=== PATIENT | female | born 1950 ===

== ENCOUNTER 2022-04-22 14:07 | Inpatient (IN) ==
[2022-04-22] MEDS ORDERED: ASPIRIN 325 MG TABLET PO STA (16:12)
[2022-04-22] MEDS ORDERED: SODIUM CHLORIDE 0.9% 500 ML IV STA (16:12)
[2022-04-22 16:17] LABS: Basophils % 0.1 % (0.0-0.8); Eosinophils # 0.2 10*3/uL (0.0-0.87); Eosinophils % 1.4 % (0.00-10.9); Hematocrit 40.7 VOL% (35.7-47.0); Hemoglobin 13.1 GM/DL (12.0-16.0); Immature Granulocytes % 0.3 %; Immature Granulocytes Absolute 0.04 #; Lymphocytes # 1.3 10*3/uL (1.4-4.0); Lymphocytes % 11.3 % (21.3-54.2); Mean Corpuscular HGB Conc 32.2 GM/DL (32-36); Mean Corpuscular Volume 97.1 FL (87-102); Mean Platelet Volume 10.5 FL (9.6-12.0); Monocytes # 1.1 10*3/uL (0.11-0.8); Monocytes % 9.2 % (1.7-12.7); Neutrophils % 77.7 % (38.7-73.9); Platelet Count 290 T/CUMM (130-400); Red Blood Count 4.19 MC/CUMM (3.8-5.5); Red Cell Distribution Width 13.8 % (9.3-17.3); White Blood Count 11.6 T/CUMM (4-12)
[2022-04-22 16:26] LABS: Calcium 9.6 MG/DL (8.5-10.1); Osmolality,Calculated 290.4 MOS/KG (273-304); Potassium 5.1 MMOL/L (3.5-5.1)
[2022-04-22] MEDS ORDERED: SODIUM CHLORIDE 0.9% 1,000 ML IV STA (18:04)
[2022-04-22] MEDS ORDERED: AZITHROMYCIN INJ 500 MG in SODIUM CHLORIDE 0.9% 250 ML IV STA (18:04)
[2022-04-22] MEDS ORDERED: cefTRIAXone 1,000 MG in SODIUM CHLORIDE 0.9% 100 ML IV ONE (18:04)
[2022-04-22] MEDS ORDERED: NITROGLYCERIN SL 0.4 MG TABLET SL STA (18:37)
[2022-04-22] MEDS ORDERED: FUROSEMIDE 40 MG/4 ML VIAL IV STA (18:40)
[2022-04-22] MEDS ORDERED: NITROGLYCERIN DRIP 50 MG/250 ML BOTTLE IV SCH (19:00)
[2022-04-22] MEDS ORDERED: hydroCHLOROthiazide 25 MG TABLET PO STA (20:19)
[2022-04-22] MEDS ORDERED: LABETALOL 20 MG/4 ML SYRINGE IV STA (20:34)
[2022-04-22] MEDS ORDERED: ASPIRIN CHEW 81 MG TABLET PO STA (20:35)
[2022-04-22] MEDS ORDERED: ENOXAPARIN 120 MG/0.8 ML SYRINGE SUBCUT STA (20:36)
[2022-04-22] MEDS ORDERED: ONDANSETRON 4 MG/2 ML VIAL IV PRN (21:15)
[2022-04-22] MEDS ORDERED: hydrALAZINE 20 MG/1 ML VIAL IV PRN (21:15)
[2022-04-22] MEDS ORDERED: ACETAMINOPHEN 325 MG TABLET PO PRN (21:15)
[2022-04-22] MEDS ORDERED: ALUMINUM/MAGNES/SIMETH MAX STR 30 ML UDCUP PO PRN (21:15)
[2022-04-22] MEDS ORDERED: DEXTROSE 10% 250 ML BAG IV PRN (21:25)
[2022-04-22] MEDS ORDERED: GLUCAGON 1 MG VIAL IM PRN (21:25)
[2022-04-22 21:36] LABS: Bacteria,Urine Occasional /HPF (Few); RBC,Urine 1 /HPF (0-4); Urine Appearance Clear (Clear); Urine Color Yellow (Yellow); Urine pH 5.5 (4.5-8.0)
[2022-04-22 21:37] LABS: Bilirubin,Urine Negative (Negative); Blood, Urine Trace mg/dL (Negative); Glucose,Urine (UA) 500 mg/dL (Negative); Ketones,Urine Negative (Negative); Nitrite,Urine Negative (Negative); Protein,Urine Negative (Negative); Urine Urobilinogen 0.2 eU/dL (<2.0)
[2022-04-22] MEDS: carvediloL 3.125 MG TABLET PO SCH (22:48)
[2022-04-23] MEDS: ALBUTEROL 2.5 MG/3 ML NEB RESP TX SCH ×4 (00:36→19:20)
[2022-04-23 02:29] LABS: Basophils % 0.1 % (0.0-0.8); Eosinophils # 0.1 10*3/uL (0.0-0.87); Eosinophils % 0.7 % (0.00-10.9); Hematocrit 36.9 VOL% (35.7-47.0); Immature Granulocytes % 0.3 %; Immature Granulocytes Absolute 0.03 #; Lymphocytes # 0.9 10*3/uL (1.4-4.0); Lymphocytes % 10.3 % (21.3-54.2); Mean Corpuscular HGB Conc 32.5 GM/DL (32-36); Mean Corpuscular Volume 96.9 FL (87-102); Mean Platelet Volume 9.9 FL (9.6-12.0); Monocytes # 0.9 10*3/uL (0.11-0.8); Monocytes % 10.4 % (1.7-12.7); Neutrophils % 78.2 % (38.7-73.9); Platelet Count 254 T/CUMM (130-400); Red Blood Count 3.81 MC/CUMM (3.8-5.5); Red Cell Distribution Width 13.8 % (9.3-17.3)
[2022-04-23 03:05] LABS: Osmolality,Calculated 288.5 MOS/KG (273-304); Potassium 3.8 MMOL/L (3.5-5.1); Risk Ratio 4.29; Thyroid Stimulating Hormone 1.24 uIU/ml (0.358-3.74); VLDL Cholesterol 26.4 MG/DL
[2022-04-23] MEDS ORDERED: MAGNESIUM SULF RIDER 2 GM/50 ML PREMIX IV PRN (06:43)
[2022-04-23] MEDS ORDERED: POTASSIUM CHLORIDE 20 MEQ TABLET PO PRN (06:43)
[2022-04-23] MEDS ORDERED: MAGNESIUM SULF RIDER 4 GM/100 ML PREMIX IV PRN (06:43)
[2022-04-23] MEDS ORDERED: POTASSIUM CHLORIDE RIDER 10 MEQ/100 ML PREMIX IV PRN (06:43)
[2022-04-23] MEDS ORDERED: SODIUM CHLORIDE 0.9% 1,000 ML IV ONE (06:44)
[2022-04-23] MEDS ORDERED: GLUCAGON 1 MG VIAL IM PRN (09:46)
[2022-04-23] MEDS ORDERED: DEXTROSE 10% 250 ML BAG IV PRN (09:50)
[2022-04-23] MEDS: INSULIN REGULAR 100 UNIT/ML SUBCUT SCH ×3 (10:53→17:43)
[2022-04-23] MEDS: PANTOPRAZOLE 40 MG TABLET PO SCH (10:54)
[2022-04-23] MEDS: DOCUSATE SODIUM 100 MG CAPSULE PO SCH ×2 (10:54→22:07)
[2022-04-23] MEDS: carvediloL 3.125 MG TABLET PO SCH ×2 (10:54→22:07)
[2022-04-23] MEDS: DULoxetine 30 MG CAPSULE PO SCH (10:54)
[2022-04-23] MEDS: guaiFENesin/DM ER 600-30 MG TABLET PO SCH ×2 (10:54→22:08)
[2022-04-23] MEDS: sitaGLIPtin 100 MG TABLET PO SCH (10:54)
[2022-04-23] MEDS: hydroCHLOROthiazide 25 MG TABLET PO SCH (10:54)
[2022-04-23] MEDS: allopurinoL 300 MG TABLET PO SCH (10:54)
[2022-04-23] MEDS: ASPIRIN EC 325 MG TABLET PO SCH (10:54)
[2022-04-23] MEDS ORDERED: FUROSEMIDE 40 MG/4 ML VIAL IV ONE (20:12)
[2022-04-23 20:40] LABS: Arterial Base Excess iSTAT 5 MMOL/L (-2.5-2.5); Arterial Bicarbonate iSTAT 29.7 MMOL/L (20-26); Arterial O2 Saturation iSTAT 97 % (95-100); Arterial PCO2 iSTAT 42 MM HG (35-48); Arterial PO2 iSTAT 90 MM HG (80-95); Arterial Total CO2 iSTAT 31 MMO/L (23-27); Arterial pH iSTAT 7.458 (7.35-7.45)
[2022-04-23] MEDS: SIMVASTATIN 20 MG TABLET PO SCH (22:07)
[2022-04-23] MEDS: ENOXAPARIN 40 MG/0.4 ML SYRINGE SUBCUT SCH (22:07)
[2022-04-23] MEDS: cefTRIAXone 1,000 MG in SODIUM CHLORIDE 0.9% 100 ML IV SCH (22:08)
[2022-04-23] MEDS: AZITHROMYCIN INJ 500 MG in SODIUM CHLORIDE 0.9% 250 ML IV SCH (22:09)
[2022-04-24] MEDS: INSULIN GLARGINE 100 UNIT/ML SUBCUT SCH ×2 (00:50→20:52)
[2022-04-24] MEDS: INSULIN REGULAR 100 UNIT/ML SUBCUT SCH ×5 (00:50→20:52)
[2022-04-24 04:57] LABS: Basophils % 0.4 % (0.0-0.8); Eosinophils # 0.1 10*3/uL (0.0-0.87); Eosinophils % 1.6 % (0.00-10.9); Hematocrit 38.2 VOL% (35.7-47.0); Hemoglobin 12.2 GM/DL (12.0-16.0); Immature Granulocytes % 0.5 %; Immature Granulocytes Absolute 0.04 #; Lymphocytes # 1.3 10*3/uL (1.4-4.0); Lymphocytes % 14.6 % (21.3-54.2); Mean Corpuscular HGB Conc 31.9 GM/DL (32-36); Mean Corpuscular Volume 99.2 FL (87-102); Mean Platelet Volume 10.4 FL (9.6-12.0); Monocytes # 0.9 10*3/uL (0.11-0.8); Monocytes % 9.9 % (1.7-12.7); Platelet Count 272 T/CUMM (130-400); Red Blood Count 3.85 MC/CUMM (3.8-5.5); Red Cell Distribution Width 13.8 % (9.3-17.3); White Blood Count 8.6 T/CUMM (4-12)
[2022-04-24 05:18] LABS: Calcium 9.5 MG/DL (8.5-10.1); Osmolality,Calculated 280.2 MOS/KG (273-304); Potassium 4.3 MMOL/L (3.5-5.1)
[2022-04-24] MEDS: ALBUTEROL 2.5 MG/3 ML NEB RESP TX SCH ×4 (07:34→19:35)
[2022-04-24] MEDS: hydroCHLOROthiazide 25 MG TABLET PO SCH (09:33)
[2022-04-24] MEDS: SACUBITRIL/VALSARTAN 49-51 MG TABLET PO SCH ×2 (09:33→20:51)
[2022-04-24] MEDS: DULoxetine 30 MG CAPSULE PO SCH (09:33)
[2022-04-24] MEDS: DOCUSATE SODIUM 100 MG CAPSULE PO SCH ×2 (09:34→20:52)
[2022-04-24] MEDS: carvediloL 6.25 MG TABLET PO SCH ×2 (09:34→17:09)
[2022-04-24] MEDS: guaiFENesin/DM ER 600-30 MG TABLET PO SCH ×2 (09:34→20:51)
[2022-04-24] MEDS: allopurinoL 300 MG TABLET PO SCH (09:34)
[2022-04-24] MEDS: sitaGLIPtin 100 MG TABLET PO SCH (09:34)
[2022-04-24] MEDS: ASPIRIN EC 325 MG TABLET PO SCH (09:34)
[2022-04-24] MEDS: DAPAGLIFLOZIN 10 MG TABLET PO SCH (09:34)
[2022-04-24] MEDS: PANTOPRAZOLE 40 MG TABLET PO SCH (09:34)
[2022-04-24] MEDS: VANCOMYCIN INJ 1,750 MG in SODIUM CHLORIDE 0.9% 500 ML IV SCH (17:07)
[2022-04-24] MEDS: SIMVASTATIN 20 MG TABLET PO SCH (20:51)
[2022-04-24] MEDS: cefTRIAXone 1,000 MG in SODIUM CHLORIDE 0.9% 100 ML IV SCH (20:52)
[2022-04-24] MEDS: ENOXAPARIN 40 MG/0.4 ML SYRINGE SUBCUT SCH (20:52)
[2022-04-24] MEDS: AZITHROMYCIN INJ 500 MG in SODIUM CHLORIDE 0.9% 250 ML IV SCH (22:18)
[2022-04-25] MEDS: ALBUTEROL 2.5 MG/3 ML NEB RESP TX SCH ×4 (00:01→19:06)
[2022-04-25 04:26] LABS: Basophils % 0.4 % (0.0-0.8); Eosinophils # 0.2 10*3/uL (0.0-0.87); Eosinophils % 3.2 % (0.00-10.9); Hemoglobin 12.8 GM/DL (12.0-16.0); Immature Granulocytes % 0.7 %; Immature Granulocytes Absolute 0.04 #; Lymphocytes # 1.6 10*3/uL (1.4-4.0); Lymphocytes % 28.7 % (21.3-54.2); Mean Corpuscular HGB Conc 32.8 GM/DL (32-36); Mean Corpuscular Volume 96.8 FL (87-102); Mean Platelet Volume 10.1 FL (9.6-12.0); Monocytes # 0.7 10*3/uL (0.11-0.8); Monocytes % 11.7 % (1.7-12.7); Neutrophils % 55.3 % (38.7-73.9); Platelet Count 276 T/CUMM (130-400); Red Blood Count 4.03 MC/CUMM (3.8-5.5); Red Cell Distribution Width 13.9 % (9.3-17.3); White Blood Count 5.7 T/CUMM (4-12)
[2022-04-25 04:31] LABS: Arterial Base Excess iSTAT 5 MMOL/L (-2.5-2.5); Arterial Bicarbonate iSTAT 29.8 MMOL/L (20-26); Arterial O2 Saturation iSTAT 94 % (95-100); Arterial PCO2 iSTAT 45 MM HG (35-48); Arterial PO2 iSTAT 69 MM HG (80-95); Arterial Total CO2 iSTAT 31 MMO/L (23-27); Arterial pH iSTAT 7.426 (7.35-7.45)
[2022-04-25 05:07] LABS: Osmolality,Calculated 286.3 MOS/KG (273-304)
[2022-04-25] MEDS: hydroCHLOROthiazide 25 MG TABLET PO SCH (08:38)
[2022-04-25] MEDS: ASPIRIN EC 325 MG TABLET PO SCH (08:39)
[2022-04-25] MEDS: allopurinoL 300 MG TABLET PO SCH (08:39)
[2022-04-25] MEDS: DULoxetine 30 MG CAPSULE PO SCH (08:39)
[2022-04-25] MEDS: PANTOPRAZOLE 40 MG TABLET PO SCH (08:39)
[2022-04-25] MEDS: DOCUSATE SODIUM 100 MG CAPSULE PO SCH ×2 (08:39→20:53)
[2022-04-25] MEDS: DAPAGLIFLOZIN 10 MG TABLET PO SCH (08:39)
[2022-04-25] MEDS: carvediloL 6.25 MG TABLET PO SCH ×2 (08:39→16:53)
[2022-04-25] MEDS: guaiFENesin/DM ER 600-30 MG TABLET PO SCH ×2 (08:39→20:53)
[2022-04-25] MEDS: sitaGLIPtin 100 MG TABLET PO SCH (08:39)
[2022-04-25] MEDS: SACUBITRIL/VALSARTAN 49-51 MG TABLET PO SCH ×2 (08:39→20:53)
[2022-04-25] MEDS: VANCOMYCIN INJ 1,750 MG in SODIUM CHLORIDE 0.9% 500 ML IV SCH (08:43)
[2022-04-25] MEDS: INSULIN REGULAR 100 UNIT/ML SUBCUT SCH ×4 (08:49→20:53)
[2022-04-25] MEDS: POTASSIUM CHLORIDE RIDER 10 MEQ/100 ML PREMIX IV SCH ×6 (13:26→16:53)
[2022-04-25] MEDS: SIMVASTATIN 20 MG TABLET PO SCH (20:53)
[2022-04-25] MEDS: ENOXAPARIN 40 MG/0.4 ML SYRINGE SUBCUT SCH (20:53)
[2022-04-25] MEDS: POTASSIUM CHLORIDE 20 MEQ TABLET PO SCH (20:53)
[2022-04-25] MEDS: INSULIN GLARGINE 100 UNIT/ML SUBCUT SCH (20:54)
[2022-04-25] MEDS: cefTRIAXone 1,000 MG in SODIUM CHLORIDE 0.9% 100 ML IV SCH (20:54)
[2022-04-25] MEDS: AZITHROMYCIN INJ 500 MG in SODIUM CHLORIDE 0.9% 250 ML IV SCH (21:42)
[2022-04-26] MEDS: ALBUTEROL 2.5 MG/3 ML NEB RESP TX SCH ×2 (01:03→07:55)
[2022-04-26] MEDS: VANCOMYCIN INJ 1,750 MG in SODIUM CHLORIDE 0.9% 500 ML IV SCH (03:26)
[2022-04-26 08:02] LABS: Basophils % 0.3 % (0.0-0.8); Eosinophils # 0.3 10*3/uL (0.0-0.87); Eosinophils % 4.1 % (0.00-10.9); Hematocrit 39.3 VOL% (35.7-47.0); Hemoglobin 12.7 GM/DL (12.0-16.0); Immature Granulocytes % 0.7 %; Immature Granulocytes Absolute 0.04 #; Lymphocytes # 2.2 10*3/uL (1.4-4.0); Lymphocytes % 36.7 % (21.3-54.2); Mean Corpuscular HGB Conc 32.3 GM/DL (32-36); Mean Platelet Volume 10.6 FL (9.6-12.0); Monocytes # 0.8 10*3/uL (0.11-0.8); Monocytes % 13.7 % (1.7-12.7); Neutrophils % 44.5 % (38.7-73.9); Platelet Count 284 T/CUMM (130-400); Red Blood Count 4.01 MC/CUMM (3.8-5.5); Red Cell Distribution Width 13.8 % (9.3-17.3); White Blood Count 6.1 T/CUMM (4-12)
[2022-04-26] MEDS: INSULIN REGULAR 100 UNIT/ML SUBCUT SCH ×2 (08:31→11:51)
[2022-04-26 09:04] LABS: Calcium 8.8 MG/DL (8.5-10.1); Osmolality,Calculated 284.3 MOS/KG (273-304); Potassium 3.8 MMOL/L (3.5-5.1)
[2022-04-26] MEDS: SACUBITRIL/VALSARTAN 49-51 MG TABLET PO SCH (09:42)
[2022-04-26] MEDS: guaiFENesin/DM ER 600-30 MG TABLET PO SCH (09:42)
[2022-04-26] MEDS: ASPIRIN EC 325 MG TABLET PO SCH (09:42)
[2022-04-26] MEDS: allopurinoL 300 MG TABLET PO SCH (09:43)
[2022-04-26] MEDS: sitaGLIPtin 100 MG TABLET PO SCH (09:43)
[2022-04-26] MEDS: hydroCHLOROthiazide 25 MG TABLET PO SCH (09:43)
[2022-04-26] MEDS: DULoxetine 30 MG CAPSULE PO SCH (09:43)
[2022-04-26] MEDS: POTASSIUM CHLORIDE 20 MEQ TABLET PO SCH (09:43)
[2022-04-26] MEDS: DOCUSATE SODIUM 100 MG CAPSULE PO SCH (09:44)
[2022-04-26] MEDS: PANTOPRAZOLE 40 MG TABLET PO SCH (09:44)
[2022-04-26] MEDS: DAPAGLIFLOZIN 10 MG TABLET PO SCH (09:44)
[2022-04-26] MEDS: carvediloL 6.25 MG TABLET PO SCH (09:44)
[2022-04-26 16:04] VITALS: BP 144/76
== END 2022-04-26 16:36 | disposition home health service (06) | DRG 193 ==
LOC: N.ED 14:07 → N.TELEN 21:15 → SUATTDRO 21:15 → N.TELEN 23:10
PROVIDERS: ADMIT Internal Medicine; ATTEND Internal Medicine